=== PATIENT | female | born 1995 | race African-American/Black ===

== ENCOUNTER 2018-12-30 16:22 | Emergency (ER) | payer SELFPAY ==
[~2018-12-30] VITALS: Ht 167.6 cm; Wt 104.5 kg
[2018-12-30] MEDS ORDERED: LIDOCAINE 1%/EPI 1:200,000/PF 10 ML VIAL INJ ONE (18:30)
[2018-12-30] MEDS ORDERED: POVIDONE-IODINE 10% 15 ML SOLUTION UD TP ONE (18:30)
[2018-12-30 19:34] VITALS: BP 129/83
== END 2018-12-30 20:17 | disposition home or self-care (01) ==
LOC: EMS 16:27
DX: L02.412 Cutaneous abscess of left axilla (principal); L03.112 Cellulitis of left axilla; R03.0 Elevated blood-pressure reading, without diagnosis of hypertension
CPT/HCPCS: 10060; 99283; J3490

== ENCOUNTER 2019-01-02 20:09 | Emergency (ER) | payer SELFPAY ==
[~2019-01-02] VITALS: Ht 162.6 cm; Wt 104.5 kg
[2019-01-02 21:51] VITALS: BP 133/79
== END 2019-01-02 21:53 | disposition home or self-care (01) ==
LOC: EMS 20:10
DX: L02.412 Cutaneous abscess of left axilla (principal)

== ENCOUNTER 2019-01-06 15:30 | Emergency (ER) | payer SELFPAY ==
[~2019-01-06] VITALS: Ht 167.6 cm; Wt 104.5 kg
[2019-01-06 16:07] VITALS: BP 126/88
== END 2019-01-06 16:46 | disposition left against medical advice (07) ==
LOC: EMS 15:31
DX: Z48.00 Encounter for change or removal of nonsurgical wound dressing (principal); Z53.21 Procedure and treatment not carried out due to patient leaving prior to being seen by health care provider

== ENCOUNTER 2019-01-06 18:17 | Emergency (ER) | payer SELFPAY ==
[~2019-01-06] VITALS: Ht 167.6 cm; Wt 104.5 kg
[2019-01-06 20:09] VITALS: BP 133/72
== END 2019-01-06 20:10 | disposition home or self-care (01) ==
LOC: EMS 18:18
DX: M79.89 Other specified soft tissue disorders (principal); F17.210 Nicotine dependence, cigarettes, uncomplicated; F12.90 Cannabis use, unspecified, uncomplicated; Z48.00 Encounter for change or removal of nonsurgical wound dressing

== ENCOUNTER 2019-01-10 21:41 | Emergency (ER) | payer SELFPAY ==
[~2019-01-10] VITALS: Ht 167.6 cm; Wt 106.8 kg
[2019-01-10 22:33] VITALS: BP 122/68
== END 2019-01-10 22:44 | disposition home or self-care (01) ==
LOC: EMS 21:42
DX: M79.622 Pain in left upper arm (principal); F17.210 Nicotine dependence, cigarettes, uncomplicated; F12.90 Cannabis use, unspecified, uncomplicated; Z48.00 Encounter for change or removal of nonsurgical wound dressing